=== PATIENT | male | born 1975 | race African-American/Black ===

== ENCOUNTER 2017-03-04 17:59 | Emergency (ER) | payer OTHER ==
[~2017-03-04] VITALS: Ht 170.2 cm; Wt 78.0 kg
[2017-03-04 18:23] LABS: GLUCOSE,POINT OF CARE 142 MG/DL (70-110)
[2017-03-04 18:37] LABS: BASOPHILS % (AUTO) 0.6 % (0.0-2.0); EOSINOPHILS % (AUTO) 2.8 % (1.0-6.0); HEMATOCRIT 44.9 % (41-53); HEMOGLOBIN 14.6 g/dL (13.5-17.5); LYMPHOCYTES # (AUTO) 1.7 K/uL (1.0-4.8); LYMPHOCYTES % (AUTO) 19.2 % (22.0-44.0); MEAN CORPUSCULAR HEMOGLOBIN 29.3 pg (26.0-34.0); MEAN CORPUSCULAR HGB CONC 32.4 G/dL (31.0-37.0); MEAN CORPUSCULAR VOLUME 90 fL (80-100); MONOCYTES # (AUTO) 0.5 K/uL (0.1-1.0); MONOCYTES % (AUTO) 5.3 % (2.0-9.0); NEUTROPHILS # (AUTO) 6.4 K/uL (1.8-7.7); NEUTROPHILS % (AUTO) 72.1 % (40.0-70.0); PLATELET COUNT (AUTO) 285 K/uL (150-450); RED BLOOD CELL COUNT(AUTO) 4.96 MIL/uL (4.50-5.90); RED CELL DISTRIBUTION WIDTH 14.2 % (11.5-14.5); WHITE BLOOD COUNT (AUTO) 8.9 K/uL (4.5-11.0)
[2017-03-04 18:48] LABS: ANION GAP 8 mmol/L (8-16); CALCIUM, TOTAL 9.5 mg/dL (8.8-10.5); CARBON DIOXIDE 29 mmol/L (22-29); CHLORIDE 105 mmol/L (98-107); CREATININE 0.94 mg/dL (0.60-1.30); GLOMERULAR FILTR. RATE CALC > 60 mL/min (>60); POTASSIUM 3.3 mmol/L (3.5-5.1); SODIUM SERUM 142 mmol/L (136-145); UREA NITROGEN, BLOOD 9 mg/dL (7-18)
[2017-03-04 18:56] LABS: ALANINE AMINOTRANSFERASE 15 U/L (12-78); ALBUMIN 3.7 g/dL (3.4-5.0); ASPARTATE AMINOTRANSFERASE 16 U/L (15-37); BILIRUBIN,TOTAL 0.4 mg/dL (0.1-1.0); TOTAL PROTEIN, SERUM 8.2 g/dL (6.4-8.2)
[2017-03-04 23:19] LABS: APPEARANCE,URINE CLOUDY (CLEAR); GLUCOSE, URINE (UA) NEGATIVE (NEGATIVE); KETONES,URINE TRACE mg/dL (NEGATIVE); LEUKOCYTE ESTERASE ,URINE NEGATIVE (NEGATIVE); OCCULT BLOOD,URINE SMALL (NEGATIVE); PROTEIN,URINE TRACE (NEGATIVE)
[2017-03-04] MEDS: OLANZapine 5 MG TABLET PO ONE ×2 (23:24→23:58)
[2017-03-04 23:38] VITALS: BP 114/76
[2017-03-04 23:44] LABS: SQUAMOUS EPITHELIAL CELL,UR Few /LPF (None Seen)
== END 2017-03-05 00:02 | disposition home or self-care (01) ==
LOC: EDBD 18:09 → EMS 18:09
DX: F25.9 Schizoaffective disorder, unspecified (principal); R32 Unspecified urinary incontinence; F17.210 Nicotine dependence, cigarettes, uncomplicated
CPT/HCPCS: 36415; 80053; 80307; 81001; 82962; 85025; 99284; G0480

== ENCOUNTER 2019-02-28 15:01 | Inpatient (IN) | payer MEDICAID ==
[~2019-02-28] VITALS: Ht 180.3 cm; Wt 75.3 kg
[~2019-02-28 15:01] MED LIST: OLAN5TAB40 PO; OMEP20 PO; VITAD1000 PO
[2019-02-28] MEDS ORDERED: SODIUM CHLORIDE 0.9% 1,000 ML IV ONE (16:00)
[2019-02-28] MEDS ORDERED: 0.9% SODIUM CHLORIDE 10 ML SYRINGE IVP PRN (16:00)
[2019-02-28] MEDS: LORazepam 2 MG/ML VIAL IM ONE ×2 (16:50→18:52)
[2019-02-28] MEDS: HALOPERIDOL LACTATE 5 MG/ML VIAL IM ONE ×2 (16:50→18:52)
[2019-02-28 21:24] LABS: BASOPHILS % (AUTO) 1.7 % (0.0-2.0); EOSINOPHILS % (AUTO) 6.2 % (1.0-6.0); HEMATOCRIT 40.3 % (41-53); HEMOGLOBIN 13.5 g/dL (13.5-17.5); LYMPHOCYTES # (AUTO) 1.4 K/uL (1.0-4.8); LYMPHOCYTES % (AUTO) 24.6 % (22.0-44.0); MEAN CORPUSCULAR HEMOGLOBIN 29.2 pg (26.0-34.0); MEAN CORPUSCULAR HGB CONC 33.3 G/dL (31.0-37.0); MEAN CORPUSCULAR VOLUME 88 fL (80-100); MONOCYTES # (AUTO) 0.3 K/uL (0.1-1.0); MONOCYTES % (AUTO) 5.5 % (2.0-9.0); NEUTROPHILS # (AUTO) 3.6 K/uL (1.8-7.7); PLATELET COUNT (AUTO) 308 K/uL (150-450); RED BLOOD CELL COUNT(AUTO) 4.61 MIL/uL (4.50-5.90); RED CELL DISTRIBUTION WIDTH 13.9 % (11.5-14.5)
[2019-02-28 21:40] LABS: ANION GAP 8 mmol/L (8-16); CALCIUM, TOTAL 9.2 mg/dL (8.8-10.5); CARBON DIOXIDE 30 mmol/L (22-29); CHLORIDE 109 mmol/L (98-107); CREATININE 0.83 mg/dL (0.60-1.30); GLOMERULAR FILTR. RATE CALC > 60 mL/min (>60); GLUCOSE,RANDOM 102 mg/dL (70-110); POTASSIUM 4.5 mmol/L (3.5-5.1); SODIUM SERUM 147 mmol/L (136-145); UREA NITROGEN, BLOOD 13 mg/dL (7-18)
[2019-02-28 21:43] LABS: LACTIC ACID 0.7 mmol/L (0.4-2.0)
[2019-02-28 21:44] LABS: AMMONIA 28 umol/L (11-32); TROPONIN I < 0.02 ng/mL (0.00-0.05)
[2019-02-28 22:02] LABS: ALANINE AMINOTRANSFERASE 17 U/L (12-78); ALBUMIN 3.2 g/dL (3.4-5.0); ALKALINE PHOSPHATASE 116 U/L (46-116); ASPARTATE AMINOTRANSFERASE 20 U/L (15-37); BILIRUBIN,TOTAL 0.2 mg/dL (0.1-1.0); CREATINE KINASE, TOTAL ONLY 157 U/L (39-308)
[2019-03-01 00:25] LABS: APPEARANCE,URINE CLEAR (CLEAR); BILIRUBIN,URINE NEGATIVE (NEGATIVE); GLUCOSE, URINE (UA) NEGATIVE (NEGATIVE); KETONES,URINE NEGATIVE (NEGATIVE); LEUKOCYTE ESTERASE ,URINE NEGATIVE (NEGATIVE); NITRATE,URINE NEGATIVE (NEGATIVE); OCCULT BLOOD,URINE NEGATIVE (NEGATIVE); PH,URINE 7.5 (5.0-8.0); PROTEIN,URINE NEGATIVE (NEGATIVE)
[2019-03-01 00:30] LABS: AMPHET/METH SCREEN,URINE NEGATIVE (NEGATIVE); BARBITURATE SCREEN, URINE NEGATIVE (NEGATIVE); BENZODIAZEPINES SCREEN,URINE NEGATIVE (NEGATIVE); CANNABINOID SCREEN,URINE NEGATIVE (NEGATIVE); COCAINE SCREEN,URINE NEGATIVE (NEGATIVE); METHADONE SCREEN, URINE NEGATIVE (NEGATIVE); OPIATE SCREEN,URINE NEGATIVE (NEGATIVE)
[2019-03-01 00:33] LABS: PHENCYCLIDINE SCREEN,URINE NEGATIVE (NEGATIVE)
[2019-03-01] MEDS ORDERED: PNEUMOCOCCAL VACCINE POLYVALENT 0.5 ML VIAL [PPSV23] IM ONE (06:45)
[2019-03-01 08:00] VITALS: BP 103/63
[2019-03-01] MEDS ORDERED: CloNIDine HCL 0.1 MG TABLET PO PRN (08:45)
[2019-03-01] MEDS ORDERED: ACETAMINOPHEN 325 MG TABLET PO PRN (08:45)
[2019-03-01] MEDS ORDERED: MAG HYDROX/AL HYDROX/SIMETH ES 30 ML SUSPENSION UDCUP PO PRN (08:45)
[2019-03-01] MEDS ORDERED: BENZOCAINE/MENTHOL LOZENGE MM PRN (08:45)
[2019-03-01] MEDS ORDERED: ALBUTEROL SULFATE HFA 90 MCG/PUFF 8 GM INHALER IH PRN (08:45)
[2019-03-01] MEDS ORDERED: ONDANSETRON HCL 4 MG TABLET PO PRN (08:45)
[2019-03-01] MEDS ORDERED: MAGNESIUM HYDROXIDE SUSPENSION 30 ML UDCUP PO PRN (08:45)
[2019-03-01] MEDS ORDERED: BACITRACIN 28.4 GM OINTMENT TP PRN (08:45)
[2019-03-01] MEDS ORDERED: LOPERAMIDE HCL 2 MG CAPSULE PO PRN (08:45)
[2019-03-01] MEDS ORDERED: IBUPROFEN 600 MG TABLET PO PRN (08:45)
[2019-03-01] MEDS ORDERED: PETROLATUM,WHITE 28 GM JELLY TP PRN (08:45)
[2019-03-01] MEDS: DOCUSATE SODIUM 100 MG CAPSULE PO SCH ×2 (09:00→09:31)
[2019-03-01] MEDS: OMEPRAZOLE 20 MG CAPSULE PO SCH ×2 (09:00→09:31)
[2019-03-01 16:03] VITALS: BP 109/60
[2019-03-01] MEDS: LORazepam 2 MG TABLET PO PRN (17:23)
[2019-03-01] MEDS: OLANZapine 5 MG TABLET PO SCH (20:06)
[2019-03-02 00:50] VITALS: BP 118/70
[2019-03-02] MEDS ORDERED: DOCUSATE SODIUM 100 MG CAPSULE PO PRN (06:45)
[2019-03-02 08:28] VITALS: BP 103/69
[2019-03-02] MEDS: OLANZapine 5 MG TABLET PO SCH ×2 (08:41→20:34)
[2019-03-02] MEDS: LORazepam 2 MG TABLET PO PRN (09:00)
[2019-03-02] MEDS: FLUoxetine HCL 20 MG CAPSULE PO SCH (12:57)
[2019-03-02 16:12] VITALS: BP 111/55
[2019-03-03 01:01] VITALS: BP 97/71
[2019-03-03] MEDS: FLUoxetine HCL 20 MG CAPSULE PO SCH (09:18)
[2019-03-03] MEDS: OLANZapine 5 MG TABLET PO SCH ×2 (09:18→20:12)
[2019-03-03 16:15] VITALS: BP 112/63
[2019-03-04 05:37] VITALS: BP 110/63
[2019-03-04 08:36] VITALS: BP 96/67
[2019-03-04] MEDS: OLANZapine 5 MG TABLET PO SCH (08:58)
[2019-03-04] MEDS: FLUoxetine HCL 20 MG CAPSULE PO SCH (08:58)
[2019-03-04] MEDS: LORazepam 2 MG TABLET PO PRN (09:15)
[2019-03-04 10:24] VITALS: BP 108/64
[2019-03-04 16:36] VITALS: BP 107/63
[2019-03-04] MEDS: OLANZapine 10 MG TABLET PO SCH (21:05)
[2019-03-05 00:01] VITALS: BP 105/75
[2019-03-05 08:02] VITALS: BP 100/61
[2019-03-05] MEDS: LORazepam 2 MG TABLET PO PRN ×2 (08:47→12:59)
[2019-03-05] MEDS: OLANZapine 5 MG TABLET PO SCH (08:47)
[2019-03-05] MEDS: FLUoxetine HCL 20 MG CAPSULE PO SCH (08:47)
[2019-03-05 12:41] VITALS: BP 110/84
[2019-03-05 16:38] VITALS: BP 102/64
[2019-03-05] MEDS: OLANZapine 10 MG TABLET PO SCH (20:21)
[2019-03-06 04:09] VITALS: BP 106/65
[2019-03-06 09:01] VITALS: BP 103/66
[2019-03-06] MEDS: FLUoxetine HCL 20 MG CAPSULE PO SCH (09:30)
[2019-03-06] MEDS: OLANZapine 5 MG TABLET PO SCH (09:31)
[2019-03-06 16:35] VITALS: BP 107/63
[2019-03-06] MEDS: OLANZapine 10 MG TABLET PO SCH (20:46)
[2019-03-07 00:35] VITALS: BP 106/62
[2019-03-07] MEDS: FLUoxetine HCL 20 MG CAPSULE PO SCH ×2 (08:44→09:00)
[2019-03-07] MEDS: OLANZapine 5 MG TABLET PO SCH ×2 (08:44→09:00)
[2019-03-07 09:16] VITALS: BP 100/68
[2019-03-07 16:45] VITALS: BP 102/63
[2019-03-07] MEDS: OLANZapine 10 MG TABLET PO SCH (20:41)
[2019-03-08 02:42] VITALS: BP 110/68
[2019-03-08 08:33] VITALS: BP 104/62
[2019-03-08] MEDS: FLUoxetine HCL 20 MG CAPSULE PO SCH (09:41)
[2019-03-08] MEDS: OLANZapine 5 MG TABLET PO SCH (09:41)
[2019-03-08 16:43] VITALS: BP 106/66
[2019-03-08] MEDS: OLANZapine 10 MG TABLET PO SCH (20:55)
[2019-03-09 01:14] VITALS: BP 114/67
[2019-03-09 08:00] VITALS: BP 111/62
[2019-03-09] MEDS: OLANZapine 5 MG TABLET PO SCH (09:11)
[2019-03-09] MEDS: FLUoxetine HCL 20 MG CAPSULE PO SCH (09:11)
[2019-03-09 16:09] VITALS: BP 104/61
[2019-03-09] MEDS: OLANZapine 10 MG TABLET PO SCH (21:03)
[2019-03-10 01:03] VITALS: BP 103/62
[2019-03-10 08:21] VITALS: BP 117/58
[2019-03-10] MEDS: OLANZapine 5 MG TABLET PO SCH (08:42)
[2019-03-10] MEDS: FLUoxetine HCL 20 MG CAPSULE PO SCH (08:42)
[2019-03-10 17:13] VITALS: BP 116/72
[2019-03-10] MEDS: OLANZapine 10 MG TABLET PO SCH (20:08)
[2019-03-11 00:05] VITALS: BP 110/68
[2019-03-11 08:37] VITALS: BP 101/68
[2019-03-11] MEDS: FLUoxetine HCL 20 MG CAPSULE PO SCH (08:53)
[2019-03-11] MEDS: OLANZapine 5 MG TABLET PO SCH (08:53)
[2019-03-11 16:18] VITALS: BP 113/68
[2019-03-11] MEDS: OLANZapine 10 MG TABLET PO SCH (20:30)
[2019-03-12 00:21] VITALS: BP 110/68
[2019-03-12] MEDS: OLANZapine 10 MG TABLET PO SCH ×2 (08:59→21:00)
[2019-03-12] MEDS: FLUoxetine HCL 20 MG CAPSULE PO SCH (08:59)
[2019-03-12 11:26] VITALS: BP 119/80
[2019-03-12 16:16] VITALS: BP 109/66
[2019-03-13 06:04] VITALS: BP 116/65
[2019-03-13 08:19] VITALS: BP 99/70
[2019-03-13] MEDS: OLANZapine 10 MG TABLET PO SCH ×2 (08:47→20:15)
[2019-03-13] MEDS: FLUoxetine HCL 20 MG CAPSULE PO SCH (08:47)
[2019-03-13 16:25] VITALS: BP 116/80
[2019-03-14 00:21] VITALS: BP 96/55
[2019-03-14 08:14] VITALS: BP 118/67
[2019-03-14] MEDS: OLANZapine 10 MG TABLET PO SCH ×2 (08:54→21:09)
[2019-03-14] MEDS: FLUoxetine HCL 20 MG CAPSULE PO SCH (08:54)
[2019-03-14 16:35] VITALS: BP 124/79
[2019-03-15 08:25] VITALS: BP 108/76
[2019-03-15] MEDS: OLANZapine 10 MG TABLET PO SCH ×2 (08:36→20:00)
[2019-03-15] MEDS: FLUoxetine HCL 20 MG CAPSULE PO SCH (08:36)
[2019-03-15 19:37] VITALS: BP 114/68
[2019-03-16 08:37] VITALS: BP 140/79
[2019-03-16] MEDS: OLANZapine 10 MG TABLET PO SCH ×2 (09:40→20:38)
[2019-03-16] MEDS: FLUoxetine HCL 20 MG CAPSULE PO SCH (09:40)
[2019-03-16 16:31] VITALS: BP 108/68
[2019-03-17 06:10] VITALS: BP 111/60
[2019-03-17 08:29] VITALS: BP 111/60
[2019-03-17] MEDS: OLANZapine 10 MG TABLET PO SCH ×2 (09:38→20:19)
[2019-03-17] MEDS: OMEPRAZOLE 20 MG CAPSULE PO PRN (09:38)
[2019-03-17] MEDS: FLUoxetine HCL 20 MG CAPSULE PO SCH (09:38)
[2019-03-17 16:27] VITALS: BP 100/61
[2019-03-18 00:04] VITALS: BP 117/85
[2019-03-18 08:25] VITALS: BP 114/66
[2019-03-18] MEDS: FLUoxetine HCL 20 MG CAPSULE PO SCH (09:48)
[2019-03-18] MEDS: OLANZapine 10 MG TABLET PO SCH ×2 (09:48→20:28)
[2019-03-18 16:40] VITALS: BP 106/60
[2019-03-19 05:52] VITALS: BP 125/67
[2019-03-19 08:00] VITALS: BP 114/68
[2019-03-19] MEDS: FLUoxetine HCL 20 MG CAPSULE PO SCH (08:36)
[2019-03-19] MEDS: OLANZapine 10 MG TABLET PO SCH ×2 (08:36→20:26)
[2019-03-19 16:14] VITALS: BP 102/60
[2019-03-20 00:12] VITALS: BP 100/64
[2019-03-20 09:01] VITALS: BP 108/62
[2019-03-20] MEDS: FLUoxetine HCL 20 MG CAPSULE PO SCH (09:32)
[2019-03-20] MEDS: OLANZapine 10 MG TABLET PO SCH ×2 (09:32→20:53)
[2019-03-20] MEDS: LORazepam 2 MG TABLET PO PRN (16:26)
[2019-03-20 17:44] VITALS: BP 114/70
[2019-03-21 07:02] VITALS: BP 118/75
[2019-03-21 08:00] VITALS: BP 124/78
[2019-03-21] MEDS: OLANZapine 10 MG TABLET PO SCH ×2 (09:08→20:58)
[2019-03-21] MEDS: FLUoxetine HCL 20 MG CAPSULE PO SCH (09:08)
[2019-03-21] MEDS: LORazepam 2 MG TABLET PO PRN (09:46)
[2019-03-21 16:24] VITALS: BP 98/67
[2019-03-22 00:49] VITALS: BP 106/70
[2019-03-22 08:47] VITALS: BP 109/63
[2019-03-22] MEDS: OLANZapine 10 MG TABLET PO SCH ×2 (08:49→20:22)
[2019-03-22] MEDS: FLUoxetine HCL 20 MG CAPSULE PO SCH (08:49)
[2019-03-22] MEDS: LORazepam 2 MG TABLET PO PRN (09:29)
[2019-03-22 16:11] VITALS: BP 110/68
[2019-03-23 00:12] VITALS: BP 118/78
[2019-03-23] MEDS: FLUoxetine HCL 20 MG CAPSULE PO SCH (08:49)
[2019-03-23] MEDS: LORazepam 2 MG TABLET PO PRN ×2 (08:50→19:40)
[2019-03-23] MEDS: OLANZapine 10 MG TABLET PO SCH ×2 (08:50→20:16)
[2019-03-23 09:35] VITALS: BP 118/68
[2019-03-23 16:47] VITALS: BP 140/87
[2019-03-24 00:15] VITALS: BP 102/60
[2019-03-24 09:00] VITALS: BP 122/76
[2019-03-24 09:02] LABS: ANION GAP 7 mmol/L (8-16); CALCIUM, TOTAL 8.7 mg/dL (8.8-10.5); CARBON DIOXIDE 31 mmol/L (22-29); CHLORIDE 107 mmol/L (98-107); CHOL/HDL RATIO 3.5 (4.2-7.3); CHOLESTEROL 232 mg/dL (131-200); CREATININE 0.77 mg/dL (0.60-1.30); GLOMERULAR FILTR. RATE CALC > 60 mL/min (>60); GLUCOSE,RANDOM 87 mg/dL (70-110); HDL CHOLESTEROL 66 mg/dL (40-60); LDL CHOL (CALC.) 146 mg/dL (0-130); POTASSIUM 4.4 mmol/L (3.5-5.1); SODIUM SERUM 145 mmol/L (136-145); THYROID STIMULATING HORMONE 3.44 uIU/mL (0.36-3.74); TRIGLYCERIDES 98 mg/dL (15-150); UREA NITROGEN, BLOOD 17 mg/dL (7-18)
[2019-03-24] MEDS: FLUoxetine HCL 20 MG CAPSULE PO SCH (09:11)
[2019-03-24] MEDS: LORazepam 2 MG TABLET PO PRN ×2 (09:11→16:59)
[2019-03-24] MEDS: OLANZapine 10 MG TABLET PO SCH ×2 (09:11→21:24)
[2019-03-24 16:17] VITALS: BP 109/71
[2019-03-25 05:29] VITALS: BP 103/66
[2019-03-25] MEDS: OLANZapine 10 MG TABLET PO SCH ×2 (09:00→20:35)
[2019-03-25] MEDS: FLUoxetine HCL 20 MG CAPSULE PO SCH (09:00)
[2019-03-25 09:42] VITALS: BP 107/67
[2019-03-25 16:06] VITALS: BP 121/76
[2019-03-26 06:39] VITALS: BP 115/67
[2019-03-26 08:18] VITALS: BP 121/74
[2019-03-26] MEDS: FLUoxetine HCL 20 MG CAPSULE PO SCH (08:40)
[2019-03-26] MEDS: OLANZapine 10 MG TABLET PO SCH ×2 (08:42→20:05)
[2019-03-26 16:11] VITALS: BP 102/59
[2019-03-27 01:15] VITALS: BP 120/76
[2019-03-27 08:00] VITALS: BP 109/72
[2019-03-27] MEDS: FLUoxetine HCL 20 MG CAPSULE PO SCH (08:41)
[2019-03-27] MEDS: OLANZapine 10 MG TABLET PO SCH ×2 (08:41→20:46)
[2019-03-27] MEDS: HALOPERIDOL 5 MG TABLET PO PRN (11:22)
[2019-03-27 17:00] VITALS: BP 110/65
[2019-03-28 01:49] VITALS: BP 112/74
[2019-03-28 08:39] VITALS: BP 115/75
[2019-03-28] MEDS: OLANZapine 10 MG TABLET PO SCH ×2 (08:56→21:28)
[2019-03-28] MEDS: FLUoxetine HCL 20 MG CAPSULE PO SCH (08:56)
[2019-03-28 16:19] VITALS: BP 100/65
[2019-03-29 00:10] VITALS: BP 112/62
[2019-03-29 08:21] VITALS: BP 141/85
[2019-03-29] MEDS: FLUoxetine HCL 20 MG CAPSULE PO SCH (08:44)
[2019-03-29] MEDS: OLANZapine 10 MG TABLET PO SCH ×2 (08:45→20:24)
[2019-03-29 16:51] VITALS: BP 104/60
[2019-03-30 06:56] VITALS: BP 109/70
[2019-03-30 08:00] VITALS: BP 112/81
[2019-03-30] MEDS: FLUoxetine HCL 20 MG CAPSULE PO SCH (10:23)
[2019-03-30] MEDS: OLANZapine 10 MG TABLET PO SCH ×2 (10:23→20:46)
[2019-03-30 16:17] VITALS: BP 112/68
[2019-03-30] MEDS: LORazepam 2 MG TABLET PO PRN (20:46)
[2019-03-31 06:25] VITALS: BP 118/71
[2019-03-31] MEDS: FLUoxetine HCL 20 MG CAPSULE PO SCH (09:20)
[2019-03-31] MEDS: OLANZapine 10 MG TABLET PO SCH ×2 (09:20→21:15)
[2019-03-31 16:28] VITALS: BP 113/64
[2019-04-01 00:23] VITALS: BP 114/66
[2019-04-01 08:21] VITALS: BP 122/66
[2019-04-01] MEDS: OLANZapine 10 MG TABLET PO SCH ×2 (09:26→21:05)
[2019-04-01] MEDS: FLUoxetine HCL 20 MG CAPSULE PO SCH (09:26)
[2019-04-01 16:28] VITALS: BP 109/68
[2019-04-01] MEDS: SIMVASTATIN 10 MG TABLET PO SCH (21:05)
[2019-04-02 06:31] VITALS: BP 108/67
[2019-04-02 08:12] VITALS: BP 114/73
[2019-04-02] MEDS: FLUoxetine HCL 20 MG CAPSULE PO SCH (09:06)
[2019-04-02] MEDS: OMEGA-3/DHA/EPA/FISH OIL 1,000 MG CAPSULE PO SCH (09:07)
[2019-04-02] MEDS: OLANZapine 10 MG TABLET PO SCH ×2 (09:07→20:40)
[2019-04-02 16:15] VITALS: BP 108/67
[2019-04-02] MEDS: SIMVASTATIN 10 MG TABLET PO SCH (20:40)
[2019-04-03 08:11] VITALS: BP 115/70
[2019-04-03] MEDS: OLANZapine 10 MG TABLET PO SCH ×2 (09:00→20:07)
[2019-04-03] MEDS: OMEGA-3/DHA/EPA/FISH OIL 1,000 MG CAPSULE PO SCH (09:00)
[2019-04-03] MEDS: FLUoxetine HCL 20 MG CAPSULE PO SCH (09:00)
[2019-04-03 17:13] VITALS: BP 113/74
[2019-04-03] MEDS: SIMVASTATIN 10 MG TABLET PO SCH (20:07)
[2019-04-04 02:55] VITALS: BP 121/76
[2019-04-04] MEDS: FLUoxetine HCL 20 MG CAPSULE PO SCH (08:29)
[2019-04-04] MEDS: OMEGA-3/DHA/EPA/FISH OIL 1,000 MG CAPSULE PO SCH (08:29)
[2019-04-04 08:50] VITALS: BP 102/65
[2019-04-04] MEDS: OLANZapine 10 MG TABLET PO SCH ×2 (08:54→20:58)
[2019-04-04 16:10] VITALS: BP 116/81
[2019-04-04] MEDS: SIMVASTATIN 10 MG TABLET PO SCH (20:58)
[2019-04-05 06:10] VITALS: BP 113/61
[2019-04-05 08:15] VITALS: BP 109/74
[2019-04-05] MEDS: FLUoxetine HCL 20 MG CAPSULE PO SCH (09:49)
[2019-04-05] MEDS: OMEPRAZOLE 20 MG CAPSULE PO PRN (09:50)
[2019-04-05] MEDS: OLANZapine 10 MG TABLET PO SCH ×2 (09:50→20:31)
[2019-04-05] MEDS: OMEGA-3/DHA/EPA/FISH OIL 1,000 MG CAPSULE PO SCH (09:50)
[2019-04-05 16:31] VITALS: BP 107/59
[2019-04-05] MEDS: SIMVASTATIN 10 MG TABLET PO SCH (20:31)
[2019-04-06 02:08] VITALS: BP 111/71
[2019-04-06] MEDS: OLANZapine 10 MG TABLET PO SCH ×2 (09:18→20:17)
[2019-04-06] MEDS: FLUoxetine HCL 20 MG CAPSULE PO SCH (09:18)
[2019-04-06] MEDS: OMEGA-3/DHA/EPA/FISH OIL 1,000 MG CAPSULE PO SCH (09:18)
[2019-04-06 14:46] VITALS: BP 110/75
[2019-04-06 16:39] VITALS: BP 107/62
[2019-04-06] MEDS: SIMVASTATIN 10 MG TABLET PO SCH (20:17)
[2019-04-07 00:24] VITALS: BP 110/68
[2019-04-07] MEDS: OMEGA-3/DHA/EPA/FISH OIL 1,000 MG CAPSULE PO SCH (08:37)
[2019-04-07] MEDS: OLANZapine 10 MG TABLET PO SCH ×2 (08:37→20:00)
[2019-04-07] MEDS: FLUoxetine HCL 20 MG CAPSULE PO SCH (08:37)
[2019-04-07 16:18] VITALS: BP 106/60
[2019-04-07] MEDS: SIMVASTATIN 10 MG TABLET PO SCH (20:00)
[2019-04-08 08:31] VITALS: BP 118/73
[2019-04-08] MEDS: OLANZapine 10 MG TABLET PO SCH ×2 (09:39→20:04)
[2019-04-08] MEDS: FLUoxetine HCL 20 MG CAPSULE PO SCH (09:39)
[2019-04-08] MEDS: OMEGA-3/DHA/EPA/FISH OIL 1,000 MG CAPSULE PO SCH (09:39)
[2019-04-08 16:14] VITALS: BP 110/59
[2019-04-08] MEDS: SIMVASTATIN 10 MG TABLET PO SCH (20:03)
[2019-04-09 00:48] VITALS: BP 107/87
[2019-04-09 08:13] VITALS: BP_SYST 114; BP_SYST 123; BP_DIAS 68; BP_DIAS 83
[2019-04-09] MEDS: FLUoxetine HCL 20 MG CAPSULE PO SCH (10:04)
[2019-04-09] MEDS: OMEGA-3/DHA/EPA/FISH OIL 1,000 MG CAPSULE PO SCH (10:04)
[2019-04-09] MEDS: OLANZapine 10 MG TABLET PO SCH ×2 (10:04→20:52)
[2019-04-09 16:09] VITALS: BP 111/65
[2019-04-09] MEDS: SIMVASTATIN 10 MG TABLET PO SCH (20:52)
[2019-04-10 04:49] VITALS: BP 116/70
[2019-04-10 08:25] VITALS: BP 128/76
[2019-04-10] MEDS: OMEGA-3/DHA/EPA/FISH OIL 1,000 MG CAPSULE PO SCH (08:57)
[2019-04-10] MEDS: FLUoxetine HCL 20 MG CAPSULE PO SCH (08:57)
[2019-04-10] MEDS: OLANZapine 10 MG TABLET PO SCH ×2 (08:58→20:09)
[2019-04-10 16:17] VITALS: BP 122/87
[2019-04-10 19:50] VITALS: BP 110/74
[2019-04-10] MEDS: SIMVASTATIN 10 MG TABLET PO SCH (20:44)
[2019-04-10] MEDS: ZOLPIDEM TARTRATE 10 MG TABLET PO PRN (22:02)
[2019-04-11] MEDS: FLUoxetine HCL 20 MG CAPSULE PO SCH (08:39)
[2019-04-11] MEDS: OMEGA-3/DHA/EPA/FISH OIL 1,000 MG CAPSULE PO SCH (08:41)
[2019-04-11] MEDS: OLANZapine 10 MG TABLET PO SCH ×2 (08:41→20:37)
[2019-04-11 09:44] VITALS: BP 101/69
[2019-04-11 16:30] VITALS: BP 113/71
[2019-04-11] MEDS: SIMVASTATIN 10 MG TABLET PO SCH (20:37)
[2019-04-12 08:29] VITALS: BP 115/66
[2019-04-12] MEDS: OMEGA-3/DHA/EPA/FISH OIL 1,000 MG CAPSULE PO SCH (08:34)
[2019-04-12] MEDS: OLANZapine 10 MG TABLET PO SCH ×2 (08:34→20:04)
[2019-04-12] MEDS: FLUoxetine HCL 20 MG CAPSULE PO SCH (08:34)
[2019-04-12 16:00] VITALS: BP 118/68
[2019-04-12] MEDS: SIMVASTATIN 10 MG TABLET PO SCH (20:03)
[2019-04-12] MEDS: ZOLPIDEM TARTRATE 10 MG TABLET PO PRN (20:03)
[2019-04-13 02:12] VITALS: BP 103/78
[2019-04-13] MEDS: FLUoxetine HCL 20 MG CAPSULE PO SCH (08:03)
[2019-04-13] MEDS: OLANZapine 10 MG TABLET PO SCH ×2 (08:03→20:05)
[2019-04-13] MEDS: OMEGA-3/DHA/EPA/FISH OIL 1,000 MG CAPSULE PO SCH (08:03)
[2019-04-13 09:00] VITALS: BP 115/76
[2019-04-13 16:10] VITALS: BP 117/73
[2019-04-13] MEDS: SIMVASTATIN 10 MG TABLET PO SCH (20:05)
[2019-04-14 09:21] VITALS: BP 102/62
[2019-04-14] MEDS: FLUoxetine HCL 20 MG CAPSULE PO SCH (10:12)
[2019-04-14] MEDS: OLANZapine 10 MG TABLET PO SCH ×2 (10:12→21:05)
[2019-04-14] MEDS: OMEPRAZOLE 20 MG CAPSULE PO PRN (10:12)
[2019-04-14] MEDS: OMEGA-3/DHA/EPA/FISH OIL 1,000 MG CAPSULE PO SCH (10:12)
[2019-04-14 17:00] VITALS: BP 121/70
[2019-04-14] MEDS: LORazepam 2 MG TABLET PO PRN (17:48)
[2019-04-14] MEDS: HALOPERIDOL 5 MG TABLET PO PRN (17:48)
[2019-04-14] MEDS: SIMVASTATIN 10 MG TABLET PO SCH (21:06)
[2019-04-15] MEDS: HALOPERIDOL 5 MG TABLET PO PRN (03:33)
[2019-04-15] MEDS: LORazepam 2 MG TABLET PO PRN (03:33)
[2019-04-15 06:35] LABS: HEMATOCRIT 39.9 % (41-53); HEMOGLOBIN 13.2 g/dL (13.5-17.5); MEAN CORPUSCULAR HEMOGLOBIN 29.6 pg (26.0-34.0); MEAN CORPUSCULAR HGB CONC 32.9 G/dL (31.0-37.0); MEAN CORPUSCULAR VOLUME 90 fL (80-100); PLATELET COUNT (AUTO) 238 K/uL (150-450); RED BLOOD CELL COUNT(AUTO) 4.44 MIL/uL (4.50-5.90); RED CELL DISTRIBUTION WIDTH 14.2 % (11.5-14.5)
[2019-04-15 07:20] LABS: ANION GAP 8 mmol/L (8-16); CALCIUM, TOTAL 9.1 mg/dL (8.8-10.5); CARBON DIOXIDE 29 mmol/L (22-29); CHLORIDE 105 mmol/L (98-107); CHOL/HDL RATIO 3.6 (4.2-7.3); CHOLESTEROL 204 mg/dL (131-200); CREATININE 0.79 mg/dL (0.60-1.30); GLOMERULAR FILTR. RATE CALC > 60 mL/min (>60); GLUCOSE,RANDOM 106 mg/dL (70-110); HDL CHOLESTEROL 56 mg/dL (40-60); LDL CHOL (CALC.) 129 mg/dL (0-130); PHOSPHORUS 4.2 mg/dL (2.5-4.9); POTASSIUM 4.1 mmol/L (3.5-5.1); SODIUM SERUM 142 mmol/L (136-145); THYROID STIMULATING HORMONE 2.35 uIU/mL (0.36-3.74); TRIGLYCERIDES 93 mg/dL (15-150); UREA NITROGEN, BLOOD 16 mg/dL (7-18)
[2019-04-15 07:44] LABS: BAND NEUTROPHILS % (MANUAL) 2 % (0-5); EOSINOPHILS % (MANUAL) 6 % (1-6); LYMPHOCYTES % (MANUAL) 27 % (22-44); MONOCYTES % (MANUAL) 4 % (2-9); SEGMENTED NEUTROPHILS % 61 % (40-70)
[2019-04-15 08:41] VITALS: BP 138/98
[2019-04-15] MEDS: OMEGA-3/DHA/EPA/FISH OIL 1,000 MG CAPSULE PO SCH (10:28)
[2019-04-15] MEDS: FLUoxetine HCL 20 MG CAPSULE PO SCH (10:28)
[2019-04-15] MEDS: OLANZapine 10 MG TABLET PO SCH ×2 (10:29→21:07)
[2019-04-15 16:05] VITALS: BP 120/73
[2019-04-15] MEDS: SIMVASTATIN 10 MG TABLET PO SCH (21:08)
[2019-04-16 09:01] VITALS: BP 117/74
[2019-04-16] MEDS: OMEGA-3/DHA/EPA/FISH OIL 1,000 MG CAPSULE PO SCH (10:19)
[2019-04-16] MEDS: FLUoxetine HCL 20 MG CAPSULE PO SCH (10:21)
[2019-04-16] MEDS: OLANZapine 10 MG TABLET PO SCH ×2 (10:21→20:02)
[2019-04-16 17:31] VITALS: BP 118/71
[2019-04-16] MEDS: SIMVASTATIN 10 MG TABLET PO SCH (20:03)
[2019-04-17 08:02] VITALS: BP 114/74
[2019-04-17] MEDS: MULTIVITAMINS WITH IRON TABLET PO SCH (08:37)
[2019-04-17] MEDS: OLANZapine 10 MG TABLET PO SCH ×2 (08:38→20:14)
[2019-04-17] MEDS: OMEGA-3/DHA/EPA/FISH OIL 1,000 MG CAPSULE PO SCH (08:38)
[2019-04-17] MEDS: FLUoxetine HCL 20 MG CAPSULE PO SCH (08:38)
[2019-04-17 16:45] VITALS: BP 124/74
[2019-04-17] MEDS: SIMVASTATIN 10 MG TABLET PO SCH (20:15)
[2019-04-17] MEDS: LORazepam 2 MG TABLET PO PRN (21:23)
[2019-04-18] MEDS: FLUoxetine HCL 20 MG CAPSULE PO SCH (09:44)
[2019-04-18] MEDS: OMEGA-3/DHA/EPA/FISH OIL 1,000 MG CAPSULE PO SCH (09:44)
[2019-04-18] MEDS: MULTIVITAMINS WITH IRON TABLET PO SCH (09:44)
[2019-04-18] MEDS: OLANZapine 10 MG TABLET PO SCH ×2 (09:44→20:32)
[2019-04-18 09:45] VITALS: BP 135/89
[2019-04-18] MEDS: LORazepam 2 MG TABLET PO PRN (13:50)
[2019-04-18] MEDS: SIMVASTATIN 10 MG TABLET PO SCH (20:32)
[2019-04-19] MEDS: MULTIVITAMINS WITH IRON TABLET PO SCH (08:18)
[2019-04-19] MEDS: LORazepam 2 MG TABLET PO PRN (08:18)
[2019-04-19] MEDS: OMEGA-3/DHA/EPA/FISH OIL 1,000 MG CAPSULE PO SCH (08:18)
[2019-04-19] MEDS: OLANZapine 10 MG TABLET PO SCH ×2 (08:19→20:27)
[2019-04-19] MEDS: HALOPERIDOL 5 MG TABLET PO PRN (08:19)
[2019-04-19] MEDS: FLUoxetine HCL 20 MG CAPSULE PO SCH (08:19)
[2019-04-19 10:37] VITALS: BP 119/85
[2019-04-19 16:21] VITALS: BP 137/78
[2019-04-19] MEDS: SIMVASTATIN 10 MG TABLET PO SCH (20:27)
[2019-04-20 04:29] VITALS: BP 146/77
[2019-04-20] MEDS: MULTIVITAMINS WITH IRON TABLET PO SCH (08:00)
[2019-04-20 08:52] VITALS: BP 129/84
[2019-04-20] MEDS: OLANZapine 10 MG TABLET PO SCH ×2 (09:00→20:22)
[2019-04-20] MEDS: FLUoxetine HCL 20 MG CAPSULE PO SCH (09:00)
[2019-04-20] MEDS: OMEGA-3/DHA/EPA/FISH OIL 1,000 MG CAPSULE PO SCH (09:00)
[2019-04-20 18:47] VITALS: BP 119/70
[2019-04-20] MEDS: SIMVASTATIN 10 MG TABLET PO SCH (20:21)
[2019-04-21 06:36] VITALS: BP 120/69
[2019-04-21 08:24] VITALS: BP 123/83
[2019-04-21] MEDS: FLUoxetine HCL 20 MG CAPSULE PO SCH (10:26)
[2019-04-21] MEDS: OLANZapine 10 MG TABLET PO SCH ×2 (10:26→20:31)
[2019-04-21] MEDS: OMEGA-3/DHA/EPA/FISH OIL 1,000 MG CAPSULE PO SCH (10:26)
[2019-04-21] MEDS: MULTIVITAMINS WITH IRON TABLET PO SCH (10:26)
[2019-04-21 18:01] VITALS: BP 98/69
[2019-04-21] MEDS: SIMVASTATIN 10 MG TABLET PO SCH (20:31)
[2019-04-21] MEDS: ZOLPIDEM TARTRATE 10 MG TABLET PO PRN (21:12)
[2019-04-22 09:09] VITALS: BP 104/66
[2019-04-22] MEDS: MULTIVITAMINS WITH IRON TABLET PO SCH (09:19)
[2019-04-22] MEDS: OMEGA-3/DHA/EPA/FISH OIL 1,000 MG CAPSULE PO SCH (09:19)
[2019-04-22] MEDS: OLANZapine 10 MG TABLET PO SCH ×2 (09:19→21:31)
[2019-04-22] MEDS: FLUoxetine HCL 20 MG CAPSULE PO SCH (09:20)
[2019-04-22] MEDS: LORazepam 2 MG TABLET PO PRN (10:06)
[2019-04-22 16:58] VITALS: BP 113/65
[2019-04-22] MEDS: SIMVASTATIN 10 MG TABLET PO SCH (21:31)
[2019-04-23 09:02] VITALS: BP 116/66
[2019-04-23] MEDS: FLUoxetine HCL 20 MG CAPSULE PO SCH (10:42)
[2019-04-23] MEDS: OMEGA-3/DHA/EPA/FISH OIL 1,000 MG CAPSULE PO SCH (10:42)
[2019-04-23] MEDS: OLANZapine 10 MG TABLET PO SCH ×2 (10:42→20:36)
[2019-04-23] MEDS: MULTIVITAMINS WITH IRON TABLET PO SCH (10:43)
[2019-04-23] MEDS: LORazepam 2 MG TABLET PO PRN (12:28)
[2019-04-23] MEDS: OMEPRAZOLE 20 MG CAPSULE PO PRN (13:28)
[2019-04-23 16:30] VITALS: BP 110/71
[2019-04-23] MEDS: SIMVASTATIN 10 MG TABLET PO SCH (20:36)
[2019-04-24 09:03] VITALS: BP 113/68
[2019-04-24] MEDS: MULTIVITAMINS WITH IRON TABLET PO SCH (09:16)
[2019-04-24] MEDS: OMEGA-3/DHA/EPA/FISH OIL 1,000 MG CAPSULE PO SCH (09:16)
[2019-04-24] MEDS: FLUoxetine HCL 20 MG CAPSULE PO SCH (09:16)
[2019-04-24] MEDS: OMEPRAZOLE 20 MG CAPSULE PO PRN (09:16)
[2019-04-24] MEDS: OLANZapine 10 MG TABLET PO SCH ×2 (09:17→20:15)
[2019-04-24 16:25] VITALS: BP 107/64
[2019-04-24] MEDS: SIMVASTATIN 10 MG TABLET PO SCH (20:15)
[2019-04-24] MEDS: ZOLPIDEM TARTRATE 10 MG TABLET PO PRN (20:16)
[2019-04-25] MEDS: OLANZapine 10 MG TABLET PO SCH ×2 (08:35→20:17)
[2019-04-25] MEDS: FLUoxetine HCL 20 MG CAPSULE PO SCH (08:35)
[2019-04-25] MEDS: OMEGA-3/DHA/EPA/FISH OIL 1,000 MG CAPSULE PO SCH (08:35)
[2019-04-25] MEDS: MULTIVITAMINS WITH IRON TABLET PO SCH (08:36)
[2019-04-25] MEDS: HALOPERIDOL 5 MG TABLET PO PRN (08:44)
[2019-04-25] MEDS: LORazepam 2 MG TABLET PO PRN (08:44)
[2019-04-25 09:01] VITALS: BP 100/57
[2019-04-25 16:45] VITALS: BP 118/78
[2019-04-25] MEDS: ZOLPIDEM TARTRATE 10 MG TABLET PO PRN (20:17)
[2019-04-25] MEDS: SIMVASTATIN 10 MG TABLET PO SCH (20:17)
[2019-04-26] MEDS: OMEGA-3/DHA/EPA/FISH OIL 1,000 MG CAPSULE PO SCH (08:43)
[2019-04-26] MEDS: OLANZapine 10 MG TABLET PO SCH ×2 (08:43→20:46)
[2019-04-26] MEDS: FLUoxetine HCL 20 MG CAPSULE PO SCH (08:43)
[2019-04-26] MEDS: MULTIVITAMINS WITH IRON TABLET PO SCH (08:43)
[2019-04-26 09:31] VITALS: BP 133/82
[2019-04-26] MEDS: LORazepam 2 MG TABLET PO PRN (12:47)
[2019-04-26] MEDS: HALOPERIDOL 5 MG TABLET PO PRN (12:47)
[2019-04-26 17:50] VITALS: BP 117/69
[2019-04-26] MEDS: SIMVASTATIN 10 MG TABLET PO SCH (20:48)
[2019-04-27 01:35] VITALS: BP 118/82
[2019-04-27 08:52] VITALS: BP 123/90
[2019-04-27] MEDS: MULTIVITAMINS WITH IRON TABLET PO SCH (09:26)
[2019-04-27] MEDS: OMEPRAZOLE 20 MG CAPSULE PO PRN (09:26)
[2019-04-27] MEDS: OMEGA-3/DHA/EPA/FISH OIL 1,000 MG CAPSULE PO SCH (09:26)
[2019-04-27] MEDS: FLUoxetine HCL 20 MG CAPSULE PO SCH (09:26)
[2019-04-27] MEDS: OLANZapine 10 MG TABLET PO SCH ×2 (09:27→20:42)
[2019-04-27 16:10] VITALS: BP 105/61
[2019-04-27] MEDS: LORazepam 2 MG TABLET PO PRN (16:42)
[2019-04-27] MEDS: SIMVASTATIN 10 MG TABLET PO SCH (20:42)
[2019-04-28 09:25] VITALS: BP 113/79
[2019-04-28] MEDS: OLANZapine 10 MG TABLET PO SCH ×2 (10:25→20:48)
[2019-04-28] MEDS: FLUoxetine HCL 20 MG CAPSULE PO SCH (10:25)
[2019-04-28] MEDS: OMEPRAZOLE 20 MG CAPSULE PO PRN (10:25)
[2019-04-28] MEDS: OMEGA-3/DHA/EPA/FISH OIL 1,000 MG CAPSULE PO SCH (10:25)
[2019-04-28] MEDS: MULTIVITAMINS WITH IRON TABLET PO SCH (10:27)
[2019-04-28 16:18] VITALS: BP 108/68
[2019-04-28] MEDS: LORazepam 2 MG TABLET PO PRN (16:39)
[2019-04-28] MEDS: SIMVASTATIN 10 MG TABLET PO SCH (20:48)
[2019-04-29 02:19] VITALS: BP 106/59
[2019-04-29 08:00] VITALS: BP 107/71
[2019-04-29] MEDS: OMEGA-3/DHA/EPA/FISH OIL 1,000 MG CAPSULE PO SCH (08:51)
[2019-04-29] MEDS: OLANZapine 10 MG TABLET PO SCH ×2 (08:51→20:17)
[2019-04-29] MEDS: FLUoxetine HCL 20 MG CAPSULE PO SCH (08:51)
[2019-04-29] MEDS: MULTIVITAMINS WITH IRON TABLET PO SCH (08:51)
[2019-04-29] MEDS ORDERED: TUBERCULIN, PURIFIED PROTEIN DERIVATIVE 5 TU/0.1 ML SYRINGE ID ONE (09:30)
[2019-04-29 19:08] VITALS: BP 126/61
[2019-04-29] MEDS: SIMVASTATIN 10 MG TABLET PO SCH (20:17)
[2019-04-30] MEDS: MULTIVITAMINS WITH IRON TABLET PO SCH (09:39)
[2019-04-30] MEDS: OMEGA-3/DHA/EPA/FISH OIL 1,000 MG CAPSULE PO SCH (09:39)
[2019-04-30] MEDS: FLUoxetine HCL 20 MG CAPSULE PO SCH (09:39)
[2019-04-30] MEDS: OLANZapine 10 MG TABLET PO SCH ×2 (09:39→20:07)
[2019-04-30 10:23] VITALS: BP 120/71
[2019-04-30] MEDS: HALOPERIDOL 5 MG TABLET PO PRN (16:07)
[2019-04-30 16:30] VITALS: BP 109/56
[2019-04-30] MEDS: SIMVASTATIN 10 MG TABLET PO SCH (20:07)
[2019-05-01] MEDS: MULTIVITAMINS WITH IRON TABLET PO SCH (09:14)
[2019-05-01] MEDS: OMEGA-3/DHA/EPA/FISH OIL 1,000 MG CAPSULE PO SCH (09:16)
[2019-05-01] MEDS: FLUoxetine HCL 20 MG CAPSULE PO SCH (09:16)
[2019-05-01] MEDS: OLANZapine 10 MG TABLET PO SCH ×2 (09:16→20:12)
[2019-05-01] MEDS: LORazepam 2 MG TABLET PO PRN (13:32)
[2019-05-01 16:00] VITALS: BP 106/56
[2019-05-01] MEDS: SIMVASTATIN 10 MG TABLET PO SCH (20:12)
[2019-05-02 08:05] VITALS: BP 112/71
[2019-05-02] MEDS: OLANZapine 10 MG TABLET PO SCH ×2 (09:10→21:13)
[2019-05-02] MEDS: FLUoxetine HCL 20 MG CAPSULE PO SCH (09:10)
[2019-05-02] MEDS: MULTIVITAMINS WITH IRON TABLET PO SCH (09:10)
[2019-05-02] MEDS: OMEGA-3/DHA/EPA/FISH OIL 1,000 MG CAPSULE PO SCH (09:10)
[2019-05-02] MEDS: LORazepam 2 MG TABLET PO PRN (14:34)
[2019-05-02] MEDS: OMEPRAZOLE 20 MG CAPSULE PO PRN (14:46)
[2019-05-02 16:57] VITALS: BP 125/67
[2019-05-02] MEDS: SIMVASTATIN 10 MG TABLET PO SCH (21:13)
[2019-05-03 08:05] VITALS: BP 150/79
[2019-05-03] MEDS: MULTIVITAMINS WITH IRON TABLET PO SCH (09:59)
[2019-05-03] MEDS: OLANZapine 10 MG TABLET PO SCH ×2 (09:59→20:32)
[2019-05-03] MEDS: FLUoxetine HCL 20 MG CAPSULE PO SCH (09:59)
[2019-05-03] MEDS: OMEGA-3/DHA/EPA/FISH OIL 1,000 MG CAPSULE PO SCH (09:59)
[2019-05-03 16:43] VITALS: BP 107/65
[2019-05-03] MEDS: SIMVASTATIN 10 MG TABLET PO SCH (20:32)
[2019-05-04 09:01] VITALS: BP 123/84
[2019-05-04] MEDS: OMEGA-3/DHA/EPA/FISH OIL 1,000 MG CAPSULE PO SCH (09:47)
[2019-05-04] MEDS: FLUoxetine HCL 20 MG CAPSULE PO SCH (09:47)
[2019-05-04] MEDS: OLANZapine 10 MG TABLET PO SCH ×2 (09:47→21:36)
[2019-05-04] MEDS: MULTIVITAMINS WITH IRON TABLET PO SCH (09:48)
[2019-05-04] MEDS: LORazepam 2 MG TABLET PO PRN (16:46)
[2019-05-04 17:08] VITALS: BP 119/79
[2019-05-04] MEDS: SIMVASTATIN 10 MG TABLET PO SCH (21:36)
[2019-05-05 08:27] VITALS: BP 117/69
[2019-05-05] MEDS: OLANZapine 10 MG TABLET PO SCH ×2 (09:28→20:15)
[2019-05-05] MEDS: FLUoxetine HCL 20 MG CAPSULE PO SCH (09:28)
[2019-05-05] MEDS: OMEGA-3/DHA/EPA/FISH OIL 1,000 MG CAPSULE PO SCH (09:28)
[2019-05-05] MEDS: MULTIVITAMINS WITH IRON TABLET PO SCH (09:29)
[2019-05-05] MEDS: LORazepam 2 MG TABLET PO PRN (17:10)
[2019-05-05 17:35] VITALS: BP 110/59
[2019-05-05] MEDS: SIMVASTATIN 10 MG TABLET PO SCH (20:16)
[2019-05-05] MEDS: ZOLPIDEM TARTRATE 10 MG TABLET PO PRN (21:21)
[2019-05-06 05:30] VITALS: BP 113/72
[2019-05-06 08:42] VITALS: BP 126/73
[2019-05-06] MEDS: MULTIVITAMINS WITH IRON TABLET PO SCH (08:46)
[2019-05-06] MEDS: OMEGA-3/DHA/EPA/FISH OIL 1,000 MG CAPSULE PO SCH (08:46)
[2019-05-06] MEDS: FLUoxetine HCL 20 MG CAPSULE PO SCH (08:47)
[2019-05-06] MEDS: OLANZapine 10 MG TABLET PO SCH ×2 (08:47→20:08)
[2019-05-06 16:30] VITALS: BP 120/78
[2019-05-06] MEDS: SIMVASTATIN 10 MG TABLET PO SCH (20:09)
[2019-05-06] MEDS: ZOLPIDEM TARTRATE 10 MG TABLET PO PRN (20:52)
[2019-05-07 08:05] VITALS: BP 121/69
[2019-05-07] MEDS: MULTIVITAMINS WITH IRON TABLET PO SCH (09:34)
[2019-05-07] MEDS: OMEGA-3/DHA/EPA/FISH OIL 1,000 MG CAPSULE PO SCH (09:34)
[2019-05-07] MEDS: FLUoxetine HCL 20 MG CAPSULE PO SCH (09:35)
[2019-05-07] MEDS: OLANZapine 10 MG TABLET PO SCH ×2 (09:36→20:51)
[2019-05-07 16:53] VITALS: BP 108/56
[2019-05-07] MEDS: SIMVASTATIN 10 MG TABLET PO SCH (20:50)
[2019-05-08] MEDS: OMEGA-3/DHA/EPA/FISH OIL 1,000 MG CAPSULE PO SCH (08:37)
[2019-05-08] MEDS: FLUoxetine HCL 20 MG CAPSULE PO SCH (08:37)
[2019-05-08] MEDS: OLANZapine 10 MG TABLET PO SCH ×2 (08:38→20:27)
[2019-05-08] MEDS: MULTIVITAMINS WITH IRON TABLET PO SCH (08:39)
[2019-05-08 09:19] VITALS: BP 104/65
[2019-05-08 16:21] VITALS: BP 115/78
[2019-05-08] MEDS: SIMVASTATIN 10 MG TABLET PO SCH (20:27)
[2019-05-09 00:22] VITALS: BP 119/74
[2019-05-09 08:05] VITALS: BP 121/70
[2019-05-09] MEDS: OLANZapine 10 MG TABLET PO SCH ×2 (08:28→20:34)
[2019-05-09] MEDS: FLUoxetine HCL 20 MG CAPSULE PO SCH (08:29)
[2019-05-09] MEDS: MULTIVITAMINS WITH IRON TABLET PO SCH (08:29)
[2019-05-09] MEDS: OMEGA-3/DHA/EPA/FISH OIL 1,000 MG CAPSULE PO SCH (08:29)
[2019-05-09] MEDS: LORazepam 2 MG TABLET PO PRN (16:24)
[2019-05-09 19:30] VITALS: BP 115/59
[2019-05-09] MEDS: SIMVASTATIN 10 MG TABLET PO SCH (20:34)
[2019-05-09] MEDS: ZOLPIDEM TARTRATE 10 MG TABLET PO PRN (20:34)
[2019-05-10 08:00] VITALS: BP 110/70
[2019-05-10] MEDS: OMEGA-3/DHA/EPA/FISH OIL 1,000 MG CAPSULE PO SCH (08:11)
[2019-05-10] MEDS: OLANZapine 10 MG TABLET PO SCH ×2 (08:11→20:09)
[2019-05-10] MEDS: FLUoxetine HCL 20 MG CAPSULE PO SCH (08:11)
[2019-05-10] MEDS: MULTIVITAMINS WITH IRON TABLET PO SCH (08:11)
[2019-05-10] MEDS: HALOPERIDOL 5 MG TABLET PO PRN (16:03)
[2019-05-10 16:32] VITALS: BP 105/69
[2019-05-10] MEDS: ZOLPIDEM TARTRATE 10 MG TABLET PO PRN (20:09)
[2019-05-10] MEDS: SIMVASTATIN 10 MG TABLET PO SCH (20:09)
[2019-05-11 03:04] VITALS: BP 109/66
[2019-05-11 08:05] VITALS: BP 107/71
[2019-05-11] MEDS: OLANZapine 10 MG TABLET PO SCH ×2 (09:33→20:19)
[2019-05-11] MEDS: FLUoxetine HCL 20 MG CAPSULE PO SCH (09:33)
[2019-05-11] MEDS: MULTIVITAMINS WITH IRON TABLET PO SCH (09:33)
[2019-05-11] MEDS: OMEGA-3/DHA/EPA/FISH OIL 1,000 MG CAPSULE PO SCH (09:33)
[2019-05-11] MEDS: HALOPERIDOL 5 MG TABLET PO PRN (16:12)
[2019-05-11] MEDS: LORazepam 2 MG TABLET PO PRN (16:12)
[2019-05-11 17:22] VITALS: BP 107/70
[2019-05-11] MEDS: SIMVASTATIN 10 MG TABLET PO SCH (20:19)
[2019-05-12 08:38] VITALS: BP 118/73
[2019-05-12] MEDS: FLUoxetine HCL 20 MG CAPSULE PO SCH (09:23)
[2019-05-12] MEDS: OMEGA-3/DHA/EPA/FISH OIL 1,000 MG CAPSULE PO SCH (09:23)
[2019-05-12] MEDS: MULTIVITAMINS WITH IRON TABLET PO SCH (09:23)
[2019-05-12] MEDS: OLANZapine 10 MG TABLET PO SCH ×2 (09:23→20:12)
[2019-05-12 18:25] VITALS: BP 111/68
[2019-05-12] MEDS: HALOPERIDOL 5 MG TABLET PO PRN (18:32)
[2019-05-12] MEDS: SIMVASTATIN 10 MG TABLET PO SCH (20:12)
[2019-05-12] MEDS: LORazepam 2 MG TABLET PO PRN (20:54)
[2019-05-13 08:30] VITALS: BP 117/63
[2019-05-13] MEDS: MULTIVITAMINS WITH IRON TABLET PO SCH (09:12)
[2019-05-13] MEDS: OMEPRAZOLE 20 MG CAPSULE PO PRN (09:12)
[2019-05-13] MEDS: OLANZapine 10 MG TABLET PO SCH ×2 (09:13→20:00)
[2019-05-13] MEDS: OMEGA-3/DHA/EPA/FISH OIL 1,000 MG CAPSULE PO SCH (09:13)
[2019-05-13] MEDS: FLUoxetine HCL 20 MG CAPSULE PO SCH (09:14)
[2019-05-13 16:46] VITALS: BP 127/81
[2019-05-13] MEDS: SIMVASTATIN 10 MG TABLET PO SCH (20:00)
[2019-05-14 08:40] VITALS: BP 126/85
[2019-05-14] MEDS: OMEGA-3/DHA/EPA/FISH OIL 1,000 MG CAPSULE PO SCH (09:16)
[2019-05-14] MEDS: OLANZapine 10 MG TABLET PO SCH ×2 (09:16→20:17)
[2019-05-14] MEDS: MULTIVITAMINS WITH IRON TABLET PO SCH (09:16)
[2019-05-14] MEDS: FLUoxetine HCL 20 MG CAPSULE PO SCH (09:17)
[2019-05-14 16:33] VITALS: BP 138/82
[2019-05-14] MEDS: SIMVASTATIN 10 MG TABLET PO SCH (20:19)
[2019-05-15 08:06] VITALS: BP 104/65
[2019-05-15] MEDS: OLANZapine 10 MG TABLET PO SCH ×2 (09:00→20:07)
[2019-05-15] MEDS: MULTIVITAMINS WITH IRON TABLET PO SCH (09:00)
[2019-05-15] MEDS: FLUoxetine HCL 20 MG CAPSULE PO SCH (09:00)
[2019-05-15] MEDS: OMEGA-3/DHA/EPA/FISH OIL 1,000 MG CAPSULE PO SCH (10:07)
[2019-05-15 16:00] VITALS: BP 118/75
[2019-05-15] MEDS: SIMVASTATIN 10 MG TABLET PO SCH (20:06)
[2019-05-16 08:05] VITALS: BP 128/94
[2019-05-16] MEDS: OMEGA-3/DHA/EPA/FISH OIL 1,000 MG CAPSULE PO SCH (08:59)
[2019-05-16] MEDS: FLUoxetine HCL 20 MG CAPSULE PO SCH (08:59)
[2019-05-16] MEDS: OLANZapine 10 MG TABLET PO SCH ×2 (08:59→20:26)
[2019-05-16] MEDS: MULTIVITAMINS WITH IRON TABLET PO SCH (09:00)
[2019-05-16] MEDS: LORazepam 2 MG TABLET PO PRN (09:18)
[2019-05-16 16:03] VITALS: BP 114/66
[2019-05-16] MEDS: SIMVASTATIN 10 MG TABLET PO SCH (20:26)
[2019-05-17 08:11] VITALS: BP 111/70
[2019-05-17] MEDS: OMEGA-3/DHA/EPA/FISH OIL 1,000 MG CAPSULE PO SCH (08:27)
[2019-05-17] MEDS: FLUoxetine HCL 20 MG CAPSULE PO SCH (08:27)
[2019-05-17] MEDS: OLANZapine 10 MG TABLET PO SCH ×2 (08:27→20:25)
[2019-05-17] MEDS: MULTIVITAMINS WITH IRON TABLET PO SCH (08:28)
[2019-05-17 16:05] VITALS: BP 114/69
[2019-05-17] MEDS: SIMVASTATIN 10 MG TABLET PO SCH (20:25)
[2019-05-18] MEDS: FLUoxetine HCL 20 MG CAPSULE PO SCH (08:31)
[2019-05-18] MEDS: OMEGA-3/DHA/EPA/FISH OIL 1,000 MG CAPSULE PO SCH (08:31)
[2019-05-18] MEDS: MULTIVITAMINS WITH IRON TABLET PO SCH (08:31)
[2019-05-18] MEDS: OLANZapine 10 MG TABLET PO SCH ×2 (08:31→20:24)
[2019-05-18 10:02] VITALS: BP 112/67
[2019-05-18 16:00] VITALS: BP 109/76
[2019-05-18] MEDS: SIMVASTATIN 10 MG TABLET PO SCH (20:24)
[2019-05-19 08:03] VITALS: BP 117/68
[2019-05-19] MEDS: FLUoxetine HCL 20 MG CAPSULE PO SCH (09:22)
[2019-05-19] MEDS: MULTIVITAMINS WITH IRON TABLET PO SCH (09:22)
[2019-05-19] MEDS: OMEGA-3/DHA/EPA/FISH OIL 1,000 MG CAPSULE PO SCH (09:22)
[2019-05-19] MEDS: OLANZapine 10 MG TABLET PO SCH ×2 (09:22→20:11)
[2019-05-19 16:13] VITALS: BP 128/89
[2019-05-19] MEDS: LORazepam 2 MG TABLET PO PRN (17:13)
[2019-05-19] MEDS: HALOPERIDOL 5 MG TABLET PO PRN (17:13)
[2019-05-19] MEDS: SIMVASTATIN 10 MG TABLET PO SCH (20:10)
[2019-05-20 08:02] VITALS: BP 151/98
[2019-05-20] MEDS: MULTIVITAMINS WITH IRON TABLET PO SCH (08:44)
[2019-05-20] MEDS: FLUoxetine HCL 20 MG CAPSULE PO SCH (08:44)
[2019-05-20] MEDS: OLANZapine 10 MG TABLET PO SCH ×2 (08:45→20:04)
[2019-05-20] MEDS: OMEGA-3/DHA/EPA/FISH OIL 1,000 MG CAPSULE PO SCH (08:45)
[2019-05-20 17:04] VITALS: BP 103/71
[2019-05-20] MEDS: SIMVASTATIN 10 MG TABLET PO SCH (20:04)
[2019-05-21 06:17] LABS: BAND NEUTROPHILS % (MANUAL) 0 % (0-5)
[2019-05-21 06:24] LABS: HEMATOCRIT 43.2 % (41-53); HEMOGLOBIN 14.1 g/dL (13.5-17.5); MEAN CORPUSCULAR HEMOGLOBIN 30.1 pg (26.0-34.0); MEAN CORPUSCULAR HGB CONC 32.7 G/dL (31.0-37.0); MEAN CORPUSCULAR VOLUME 92 fL (80-100); PLATELET COUNT (AUTO) 204 K/uL (150-450); RED CELL DISTRIBUTION WIDTH 14.2 % (11.5-14.5)
[2019-05-21 07:15] LABS: ANION GAP 10 mmol/L (8-16); CALCIUM, TOTAL 9.4 mg/dL (8.8-10.5); CARBON DIOXIDE 28 mmol/L (22-29); CHLORIDE 102 mmol/L (98-107); CHOL/HDL RATIO 3.1 (4.2-7.3); CHOLESTEROL 147 mg/dL (131-200); CREATININE 0.78 mg/dL (0.60-1.30); GLOMERULAR FILTR. RATE CALC > 60 mL/min (>60); GLUCOSE,RANDOM 82 mg/dL (70-110); HDL CHOLESTEROL 48 mg/dL (40-60); LDL CHOL (CALC.) 85 mg/dL (0-130); PHOSPHORUS 3.8 mg/dL (2.5-4.9); POTASSIUM 4.3 mmol/L (3.5-5.1); SODIUM SERUM 140 mmol/L (136-145); TRIGLYCERIDES 69 mg/dL (15-150); UREA NITROGEN, BLOOD 14 mg/dL (7-18)
[2019-05-21 07:32] LABS: EOSINOPHILS % (MANUAL) 4 % (1-6); LYMPHOCYTES % (MANUAL) 30 % (22-44); MONOCYTES % (MANUAL) 3 % (2-9); SEGMENTED NEUTROPHILS % 63 % (40-70)
[2019-05-21 08:02] VITALS: BP 115/75
[2019-05-21] MEDS: OMEGA-3/DHA/EPA/FISH OIL 1,000 MG CAPSULE PO SCH (08:22)
[2019-05-21] MEDS: OLANZapine 10 MG TABLET PO SCH ×2 (08:22→21:02)
[2019-05-21] MEDS: FLUoxetine HCL 20 MG CAPSULE PO SCH (08:22)
[2019-05-21] MEDS: MULTIVITAMINS WITH IRON TABLET PO SCH (08:22)
[2019-05-21 16:03] VITALS: BP 101/65
[2019-05-21] MEDS: SIMVASTATIN 10 MG TABLET PO SCH (21:02)
[2019-05-22] MEDS: FLUoxetine HCL 20 MG CAPSULE PO SCH (08:18)
[2019-05-22] MEDS: MULTIVITAMINS WITH IRON TABLET PO SCH (08:18)
[2019-05-22] MEDS: OLANZapine 10 MG TABLET PO SCH ×2 (08:18→20:40)
[2019-05-22] MEDS: OMEGA-3/DHA/EPA/FISH OIL 1,000 MG CAPSULE PO SCH (08:18)
[2019-05-22 11:10] VITALS: BP 117/69
[2019-05-22 16:30] VITALS: BP 121/74
[2019-05-22] MEDS: SIMVASTATIN 10 MG TABLET PO SCH (20:40)
[2019-05-23 08:05] VITALS: BP 113/60
[2019-05-23] MEDS: FLUoxetine HCL 20 MG CAPSULE PO SCH (08:55)
[2019-05-23] MEDS: OLANZapine 10 MG TABLET PO SCH ×2 (08:55→20:04)
[2019-05-23] MEDS: OMEGA-3/DHA/EPA/FISH OIL 1,000 MG CAPSULE PO SCH (08:55)
[2019-05-23] MEDS: MULTIVITAMINS WITH IRON TABLET PO SCH (08:55)
[2019-05-23] MEDS: LORazepam 2 MG TABLET PO PRN ×2 (14:05→18:56)
[2019-05-23 16:25] VITALS: BP 109/71
[2019-05-23] MEDS: ZOLPIDEM TARTRATE 10 MG TABLET PO PRN (20:03)
[2019-05-23] MEDS: SIMVASTATIN 10 MG TABLET PO SCH (20:04)
[2019-05-24 01:22] VITALS: BP 126/93
[2019-05-24 08:00] VITALS: BP 116/73
[2019-05-24 08:54] VITALS: BP 113/75
[2019-05-24] MEDS: MULTIVITAMINS WITH IRON TABLET PO SCH (10:26)
[2019-05-24] MEDS: FLUoxetine HCL 20 MG CAPSULE PO SCH (10:26)
[2019-05-24] MEDS: OMEGA-3/DHA/EPA/FISH OIL 1,000 MG CAPSULE PO SCH (10:26)
[2019-05-24] MEDS: OLANZapine 10 MG TABLET PO SCH ×2 (10:26→20:28)
[2019-05-24 16:00] VITALS: BP 116/73
[2019-05-24] MEDS: LORazepam 2 MG TABLET PO PRN (18:29)
[2019-05-24] MEDS: SIMVASTATIN 10 MG TABLET PO SCH (20:28)
[2019-05-25 08:05] VITALS: BP 119/77
[2019-05-25] MEDS: OLANZapine 10 MG TABLET PO SCH ×2 (08:36→20:00)
[2019-05-25] MEDS: MULTIVITAMINS WITH IRON TABLET PO SCH (08:36)
[2019-05-25] MEDS: FLUoxetine HCL 20 MG CAPSULE PO SCH (08:36)
[2019-05-25] MEDS: OMEGA-3/DHA/EPA/FISH OIL 1,000 MG CAPSULE PO SCH (08:36)
[2019-05-25 17:00] VITALS: BP 106/73
[2019-05-25] MEDS: LORazepam 2 MG TABLET PO PRN (17:33)
[2019-05-25] MEDS: HALOPERIDOL 5 MG TABLET PO PRN (17:33)
[2019-05-25] MEDS: ZOLPIDEM TARTRATE 10 MG TABLET PO PRN (20:00)
[2019-05-25] MEDS: SIMVASTATIN 10 MG TABLET PO SCH (20:00)
[2019-05-26 08:05] VITALS: BP 109/57
[2019-05-26] MEDS: MULTIVITAMINS WITH IRON TABLET PO SCH (08:27)
[2019-05-26] MEDS: OLANZapine 10 MG TABLET PO SCH ×2 (08:27→20:18)
[2019-05-26] MEDS: OMEGA-3/DHA/EPA/FISH OIL 1,000 MG CAPSULE PO SCH (08:27)
[2019-05-26] MEDS: FLUoxetine HCL 20 MG CAPSULE PO SCH (08:27)
[2019-05-26 16:05] VITALS: BP 105/74
[2019-05-26] MEDS: SIMVASTATIN 10 MG TABLET PO SCH (20:18)
[2019-05-27] MEDS: FLUoxetine HCL 20 MG CAPSULE PO SCH (07:59)
[2019-05-27] MEDS: OMEGA-3/DHA/EPA/FISH OIL 1,000 MG CAPSULE PO SCH (07:59)
[2019-05-27] MEDS: MULTIVITAMINS WITH IRON TABLET PO SCH (07:59)
[2019-05-27] MEDS: OLANZapine 10 MG TABLET PO SCH ×2 (07:59→20:28)
[2019-05-27 08:59] VITALS: BP 105/76
[2019-05-27 16:54] VITALS: BP 109/76
[2019-05-27] MEDS: SIMVASTATIN 10 MG TABLET PO SCH (20:27)
[2019-05-28] MEDS: MULTIVITAMINS WITH IRON TABLET PO SCH (08:04)
[2019-05-28] MEDS: FLUoxetine HCL 20 MG CAPSULE PO SCH (08:04)
[2019-05-28] MEDS: OLANZapine 10 MG TABLET PO SCH ×2 (08:04→20:35)
[2019-05-28] MEDS: OMEGA-3/DHA/EPA/FISH OIL 1,000 MG CAPSULE PO SCH (08:04)
[2019-05-28 08:05] VITALS: BP 127/82
[2019-05-28 17:18] VITALS: BP 114/75
[2019-05-28] MEDS: SIMVASTATIN 10 MG TABLET PO SCH (20:34)
[2019-05-29 08:05] VITALS: BP 114/63
[2019-05-29] MEDS: MULTIVITAMINS WITH IRON TABLET PO SCH (09:24)
[2019-05-29] MEDS: FLUoxetine HCL 20 MG CAPSULE PO SCH (09:24)
[2019-05-29] MEDS: OLANZapine 10 MG TABLET PO SCH ×2 (09:24→20:39)
[2019-05-29] MEDS: OMEGA-3/DHA/EPA/FISH OIL 1,000 MG CAPSULE PO SCH (09:24)
[2019-05-29 16:00] VITALS: BP 100/63
[2019-05-29] MEDS: LORazepam 2 MG TABLET PO PRN (16:23)
[2019-05-29] MEDS: SIMVASTATIN 10 MG TABLET PO SCH (20:39)
[2019-05-30 08:05] VITALS: BP 109/72
[2019-05-30] MEDS: MULTIVITAMINS WITH IRON TABLET PO SCH (08:51)
[2019-05-30] MEDS: OLANZapine 10 MG TABLET PO SCH ×2 (09:28→20:24)
[2019-05-30] MEDS: FLUoxetine HCL 20 MG CAPSULE PO SCH (09:30)
[2019-05-30] MEDS: OMEGA-3/DHA/EPA/FISH OIL 1,000 MG CAPSULE PO SCH (09:30)
[2019-05-30 16:52] VITALS: BP 124/86
[2019-05-30] MEDS: SIMVASTATIN 10 MG TABLET PO SCH (20:24)
[2019-05-31] MEDS: LORazepam 2 MG TABLET PO PRN (07:57)
[2019-05-31 08:05] VITALS: BP 130/79
[2019-05-31] MEDS: OMEGA-3/DHA/EPA/FISH OIL 1,000 MG CAPSULE PO SCH (08:35)
[2019-05-31] MEDS: FLUoxetine HCL 20 MG CAPSULE PO SCH (08:35)
[2019-05-31] MEDS: MULTIVITAMINS WITH IRON TABLET PO SCH (08:35)
[2019-05-31] MEDS: OLANZapine 10 MG TABLET PO SCH ×2 (08:35→20:08)
[2019-05-31 17:00] VITALS: BP 102/73
[2019-05-31] MEDS: SIMVASTATIN 10 MG TABLET PO SCH (20:08)
[2019-06-01] MEDS: OLANZapine 10 MG TABLET PO SCH ×2 (07:45→20:15)
[2019-06-01] MEDS: LORazepam 2 MG TABLET PO PRN (07:46)
[2019-06-01] MEDS: MULTIVITAMINS WITH IRON TABLET PO SCH (07:46)
[2019-06-01] MEDS: OMEGA-3/DHA/EPA/FISH OIL 1,000 MG CAPSULE PO SCH (07:46)
[2019-06-01] MEDS: FLUoxetine HCL 20 MG CAPSULE PO SCH (07:46)
[2019-06-01] MEDS: HALOPERIDOL 5 MG TABLET PO PRN (08:59)
[2019-06-01 10:10] VITALS: BP 116/66
[2019-06-01 16:27] VITALS: BP 120/77
[2019-06-01] MEDS: SIMVASTATIN 10 MG TABLET PO SCH (20:15)
[2019-06-02] MEDS: OMEGA-3/DHA/EPA/FISH OIL 1,000 MG CAPSULE PO SCH (08:16)
[2019-06-02] MEDS: MULTIVITAMINS WITH IRON TABLET PO SCH (08:16)
[2019-06-02] MEDS: OLANZapine 10 MG TABLET PO SCH ×2 (08:16→20:16)
[2019-06-02] MEDS: FLUoxetine HCL 20 MG CAPSULE PO SCH (08:17)
[2019-06-02 08:56] VITALS: BP 142/81
[2019-06-02 16:22] VITALS: BP 146/61
[2019-06-02] MEDS: SIMVASTATIN 10 MG TABLET PO SCH (20:16)
[2019-06-03] MEDS: OMEGA-3/DHA/EPA/FISH OIL 1,000 MG CAPSULE PO SCH (08:49)
[2019-06-03] MEDS: MULTIVITAMINS WITH IRON TABLET PO SCH (08:49)
[2019-06-03] MEDS: OLANZapine 10 MG TABLET PO SCH ×2 (08:49→20:41)
[2019-06-03] MEDS: FLUoxetine HCL 20 MG CAPSULE PO SCH (08:49)
[2019-06-03 09:09] VITALS: BP 139/74
[2019-06-03] MEDS: LORazepam 2 MG TABLET PO PRN (11:04)
[2019-06-03] MEDS: HALOPERIDOL 5 MG TABLET PO PRN (11:04)
[2019-06-03 16:33] VITALS: BP 119/58
[2019-06-03] MEDS: SIMVASTATIN 10 MG TABLET PO SCH (20:41)
[2019-06-04] MEDS: FLUoxetine HCL 20 MG CAPSULE PO SCH (08:51)
[2019-06-04] MEDS: OMEGA-3/DHA/EPA/FISH OIL 1,000 MG CAPSULE PO SCH (08:51)
[2019-06-04] MEDS: MULTIVITAMINS WITH IRON TABLET PO SCH (08:51)
[2019-06-04] MEDS: OLANZapine 10 MG TABLET PO SCH ×2 (08:51→20:08)
[2019-06-04 10:12] VITALS: BP 110/56
[2019-06-04] MEDS: LORazepam 2 MG TABLET PO PRN (12:49)
[2019-06-04 16:58] VITALS: BP 101/68
[2019-06-04] MEDS: SIMVASTATIN 10 MG TABLET PO SCH (20:08)
[2019-06-05 04:40] VITALS: BP 107/74
[2019-06-05] MEDS: OLANZapine 10 MG TABLET PO SCH ×2 (08:30→20:03)
[2019-06-05] MEDS: MULTIVITAMINS WITH IRON TABLET PO SCH (08:30)
[2019-06-05] MEDS: FLUoxetine HCL 20 MG CAPSULE PO SCH (08:30)
[2019-06-05] MEDS: OMEGA-3/DHA/EPA/FISH OIL 1,000 MG CAPSULE PO SCH (08:30)
[2019-06-05 08:58] VITALS: BP 112/64
[2019-06-05 16:38] VITALS: BP 110/58
[2019-06-05] MEDS: SIMVASTATIN 10 MG TABLET PO SCH (20:03)
[2019-06-06] MEDS: MULTIVITAMINS WITH IRON TABLET PO SCH (08:28)
[2019-06-06 08:34] VITALS: BP 135/65
[2019-06-06] MEDS: OMEGA-3/DHA/EPA/FISH OIL 1,000 MG CAPSULE PO SCH (09:08)
[2019-06-06] MEDS: OLANZapine 10 MG TABLET PO SCH ×2 (09:08→20:08)
[2019-06-06] MEDS: FLUoxetine HCL 20 MG CAPSULE PO SCH (09:08)
[2019-06-06 19:41] VITALS: BP 126/66
[2019-06-06] MEDS: SIMVASTATIN 10 MG TABLET PO SCH (20:08)
[2019-06-07] MEDS: OMEGA-3/DHA/EPA/FISH OIL 1,000 MG CAPSULE PO SCH (08:07)
[2019-06-07] MEDS: OLANZapine 10 MG TABLET PO SCH ×2 (08:07→20:16)
[2019-06-07] MEDS: FLUoxetine HCL 20 MG CAPSULE PO SCH (08:08)
[2019-06-07] MEDS: MULTIVITAMINS WITH IRON TABLET PO SCH (08:09)
[2019-06-07 11:05] VITALS: BP 120/68
[2019-06-07 16:42] VITALS: BP 119/76
[2019-06-07] MEDS: SIMVASTATIN 10 MG TABLET PO SCH (20:15)
[2019-06-08 08:00] VITALS: BP 117/66
[2019-06-08] MEDS: OMEGA-3/DHA/EPA/FISH OIL 1,000 MG CAPSULE PO SCH (08:36)
[2019-06-08] MEDS: OLANZapine 10 MG TABLET PO SCH (08:36)
[2019-06-08] MEDS: MULTIVITAMINS WITH IRON TABLET PO SCH (08:36)
[2019-06-08] MEDS: FLUoxetine HCL 20 MG CAPSULE PO SCH (08:36)
[2019-06-08] MEDS ORDERED: FLUO-191 PO (15:43)
[2019-06-08] MEDS ORDERED: OLAN10TA3 PO (15:44)
[2019-06-08] MEDS ORDERED: MULT-700 PO (16:15)
[2019-06-08] MEDS ORDERED: OMEG-12 PO (16:17)
[2019-06-08] MEDS ORDERED: SIMV-259 PO (16:17)
== END 2019-06-08 17:15 | disposition home or self-care (01) | DRG 750 ==
LOC: EMS 15:03 → B2S 03-01 04:28 → 2WR 03-05 22:09 → B2S 03-05 22:10 → 3EI 04-10 19:25
DX: F20.0 Paranoid schizophrenia (principal); E87.0 Hyperosmolality and hypernatremia; K21.9 Gastro-esophageal reflux disease without esophagitis; E55.9 Vitamin D deficiency, unspecified; K59.00 Constipation, unspecified; G47.00 Insomnia, unspecified; F41.9 Anxiety disorder, unspecified; E78.5 Hyperlipidemia, unspecified; E78.00 Pure hypercholesterolemia, unspecified; R45.87 Impulsiveness; F17.210 Nicotine dependence, cigarettes, uncomplicated; Z76.5 Malingerer [conscious simulation]; Z79.899 Other long term (current) drug therapy; Z59.0 Homelessness; Z71.6 Tobacco abuse counseling
CPT/HCPCS: 70450; 83605; 83735; 84100; 84443; 85007; 87040; 87081; 92610; 93005; 96372; G0480; J1630; J2060; Q0162